=== PATIENT | female | born 1960 | race Caucasian/White ===

== ENCOUNTER 2021-07-23 18:16 | Emergency (ER) | payer MEDICARE, OTHER ==
[~2021-07-23] VITALS: Ht 170.2 cm; Wt 83.2 kg
[2021-07-23 18:20] VITALS: BP 145/73
[2021-07-23] MEDS ORDERED: LOSA25TA13 (18:31)
[2021-07-23] MEDS ORDERED: VALA1TAB5 (18:31)
[2021-07-23] MEDS ORDERED: PROPARACAINE 0.5% OPHTH SOL 15ML OS ONE (19:45)
[2021-07-23] MEDS ORDERED: FLUORESCEIN OPHTH 1 MG STRIP OS ONE (19:45)
[2021-07-23] MEDS ORDERED: valACYclovir HCL 500 MG TAB PO ONE (20:40)
[2021-07-23] MEDS ORDERED: OFLOXACIN 0.3 % (OCUFLOX) OPTH SOL 5ML OS ONE (20:40)
[2021-07-23] MEDS ORDERED: NORCO, ANEXSIA 5/325MG TABLET (HYDROcodone/ACETAMINOPHEN) PO ONE (20:40)
[2021-07-23] MEDS ORDERED: HYDR-3713 PO (20:42)
== END 2021-07-23 21:03 | disposition home or self-care (01) ==
LOC: M ED 18:16
DX: B02.39 Other herpes zoster eye disease (principal); Z91.048 Other nonmedicinal substance allergy status